=== PATIENT | female | born 1995 | race Two or more races ===

== ENCOUNTER 2024-01-09 12:16 | Outpatient (CLI) | payer OTHER | END 2024-01-09 12:17 | disposition home or self-care (01) | LOC: PRENATAL 12:16 | PROVIDERS: ATTEND Obstetrics & Gynecology Maternal & Fetal Medicine | DX: O35.9XX0 Maternal care for (suspected) fetal abnormality and damage, unspecified, not applicable or unspecified (principal); O35.3XX0 Maternal care for (suspected) damage to fetus from viral disease in mother, not applicable or unspecified; O44.02 Complete placenta previa NOS or without hemorrhage, second trimester; O16.2 Unspecified maternal hypertension, second trimester; Z3A.20 20 weeks gestation of pregnancy ==

== ENCOUNTER 2024-02-29 15:29 | Outpatient (CLI) | payer OTHER | END 2024-02-29 15:30 | disposition home or self-care (01) | LOC: PRENATAL 15:29 | PROVIDERS: ATTEND Obstetrics & Gynecology Maternal & Fetal Medicine | DX: O26.849 Uterine size-date discrepancy, unspecified trimester (principal); O10.019 Pre-existing essential hypertension complicating pregnancy, unspecified trimester; O44.00 Complete placenta previa NOS or without hemorrhage, unspecified trimester; Z3A.28 28 weeks gestation of pregnancy ==

== ENCOUNTER → 2024-03-22 11:33 | Outpatient (CLI) | payer OTHER | END | disposition home or self-care (01) | LOC: PRENATAL 11:33 | PROVIDERS: ATTEND Obstetrics & Gynecology Maternal & Fetal Medicine | DX: Z76.1 Encounter for health supervision and care of foundling (principal) ==

== ENCOUNTER 2024-04-11 15:22 | Outpatient (CLI) | payer OTHER | END 2024-04-11 15:23 | disposition home or self-care (01) | LOC: PRENATAL 15:22 | PROVIDERS: ATTEND Obstetrics & Gynecology Maternal & Fetal Medicine | DX: O26.849 Uterine size-date discrepancy, unspecified trimester (principal); O36.8199 Decreased fetal movements, unspecified trimester, other fetus; O10.019 Pre-existing essential hypertension complicating pregnancy, unspecified trimester; Z3A.34 34 weeks gestation of pregnancy ==

== ENCOUNTER 2024-05-14 11:00 | Outpatient (CLI) | payer OTHER ==
[2024-05-14 08:47] VITALS: BP 124/81
[2024-05-14] MEDS ORDERED: PRENATABS RX T1 EACH PO (11:49)
[2024-05-14] MEDS ORDERED: NIFE60TA3 PO (11:49)
[2024-05-14] MEDS ORDERED: ECOTRIN81 MG PO (11:50)
[2024-05-14] MEDS ORDERED: RINGERS SOLUTION,LACTATED 1,000 ML IV SCH (12:15)
[2024-05-14 12:30] VITALS: BP 100/62
[2024-05-14 13:19] LABS: HEMATOCRIT 35.1 % (36.0-45.00); HEMOGLOBIN 11.9 g/dL (12.0-15.00); MEAN CELL VOLUME 87.2 fL (80.00-100.00); MEAN CORPUSCULAR HEMOGLOBIN 29.5 pg (27.00-32.0); MEAN CORPUSCULAR HGB CONC 33.8 g/dl (32.0-36.0); PLATELET COUNT 229 K/uL (150-450); RED BLOOD COUNT 4.03 M/uL (4.00-6.00); RED CELL DISTRIBUTION WIDTH 15.2 % (11.5-14.5)
[2024-05-14 13:21] LABS: URINE APPEARANCE Clear; URINE BILIRRUBIN Negative (NEGATIVE); URINE BLOOD Negative; URINE COLOR Yellow; URINE GLUCOSE Negative (NEGATIVE); URINE KETONE Negative (NEGATIVE); URINE LEUKOCYTE Negative; URINE NITRATE Negative; URINE PROTEIN Negative (NEGATIVE); URINE UROBILINOGEN 0.2 E.U./dl
[2024-05-14 13:22] LABS: URINE BACTERIA 522.8 uL (0.0-1933); URINE EPITHELIAL CELLS 104.6 uL (0.0-38.8); URINE WBC 31.2 uL (0.0-23.2)
[2024-05-14 13:26] LABS: URINE CAST 0.15 uL (0.0-1.40); URINE RBC 1.6 uL (0.0-20.8)
[2024-05-14 17:05] VITALS: BP 122/83
== END 2024-05-14 16:35 | disposition home or self-care (01) ==
LOC: OBS/DEL 11:00
PROVIDERS: ATTEND Obstetrics & Gynecology
DX: O36.8130 Decreased fetal movements, third trimester, not applicable or unspecified (principal); O26.893 Other specified pregnancy related conditions, third trimester; Z3A.38 38 weeks gestation of pregnancy; Z91.013 Allergy to seafood; O26.843 Uterine size-date discrepancy, third trimester

== ENCOUNTER 2024-05-17 15:15 | Inpatient (IN) | payer OTHER ==
[~2024-05-17] VITALS: Ht 160 cm; Wt 102.1 kg
[~2024-05-17 15:15] MED LIST: ECOTRIN81 MG PO; NIFE60TA3 PO; PRENATABS RX T1 EACH PO
[2024-05-21] MEDS ORDERED: RINGERS SOLUTION,LACTATED 1,000 ML IV SCH (05:30)
[2024-05-21] MEDS ORDERED: AMPICILLIN SODIUM 2,000 MG VIAL IV ONE (05:30)
[2024-05-21 05:45] VITALS: BP 137/96
[2024-05-21 06:42] LABS: HEMOGLOBIN 11.7 g/dL (12.0-15.00); MEAN CORPUSCULAR HEMOGLOBIN 29.7 pg (27.00-32.0); MEAN CORPUSCULAR HGB CONC 34.5 g/dl (32.0-36.0); PLATELET COUNT 236 K/uL (150-450); RED BLOOD COUNT 3.95 M/uL (4.00-6.00); RED CELL DISTRIBUTION WIDTH 14.8 % (11.5-14.5)
[2024-05-21 06:47] LABS: URINE APPEARANCE Cloudy; URINE BILIRRUBIN Negative (NEGATIVE); URINE BLOOD Negative; URINE COLOR Yellow; URINE GLUCOSE Negative (NEGATIVE); URINE KETONE Negative (NEGATIVE); URINE LEUKOCYTE Trace; URINE NITRATE Negative; URINE PROTEIN Negative (NEGATIVE); URINE UROBILINOGEN 0.2 E.U./dl
[2024-05-21 06:49] LABS: URINE BACTERIA 7123.7 uL (0.0-1933); URINE EPITHELIAL CELLS 61.5 uL (0.0-38.8); URINE RBC 19.2 uL (0.0-20.8); URINE WBC 95.3 uL (0.0-23.2)
[2024-05-21 07:18] LABS: INR < 0.93; PARTIAL THROMBOPLASTIN TIME 28.3 SECONDS (22.0-34.0); PROTHROMBIN TIME 10.1 SECONDS (9.0-11.5)
[2024-05-21] MEDS ORDERED: MISOPROSTOL 25 MCG/4 ML GEL.W.APPL VAG STA (07:24)
[2024-05-21 07:44] VITALS: BP 121/76
[2024-05-21 07:47] LABS: ALBUMIN 2.7 gm/dL (3.4-5.0); BILIRUBIN TOTAL 0.19 mg/dL (0.3-1.2); CALCIUM 9.4 mg/dL (8.5-10.1); CREATININE SERUM 0.59 mg/dL (0.55-1.02); GFR 119.68; GLOBULINA 3.8 G/DL (2.4-3.5); POTASSIUM 4.25 mEq/L (3.5-5.1); TOTAL PROTEIN 6.5 gm/dL (6.4-8.2)
[2024-05-21] MEDS ORDERED: AMPICILLIN SODIUM 1,000 MG VIAL IV SCH (09:00)
[2024-05-21 11:54] VITALS: BP 131/80
[2024-05-21] MEDS ORDERED: MISOPROSTOL 25 MCG/4 ML GEL.W.APPL VAG ONE (14:45)
[2024-05-21 16:18] VITALS: BP 118/68
[2024-05-21 19:30] VITALS: BP 133/81
[2024-05-21 23:26] VITALS: BP 120/74
[2024-05-22] VITALS (8 sets, daily range): BP systolic 125–148; BP diastolic 72–87
[2024-05-22] MEDS ORDERED: MORPHINE SULFATE 4 MG/ML VIAL IV ONE (00:15)
[2024-05-22] MEDS ORDERED: MORPHINE SULFATE 4 MG/ML CARTRIDGE IV ONE (05:30)
[2024-05-22] MEDS ORDERED: MORPHINE SULFATE 2 MG/ML CARTRIDGE IV ONE (10:45)
[2024-05-22] MEDS ORDERED: OXYTOCIN 500 ML IV SCH (13:15)
[2024-05-22] MEDS ORDERED: OXYTOCIN 10 UNITS/ML VIAL IM STA (15:30)
[2024-05-22] MEDS ORDERED: IBUprofen 800 MG TABLET PO PRN (15:30)
[2024-05-22] MEDS ORDERED: OXYTOCIN 1,000 ML IV SCH (15:30)
[2024-05-22] MEDS ORDERED: CHLORHEXIDINE GLUCONATE 120 ML BOTTLE TOP SCH (15:30)
[2024-05-22] MEDS ORDERED: ERYTHROMYCIN BASE OPHT 1GM EACH TUBE OP ONE (15:45)
[2024-05-22] MEDS ORDERED: LIDOCAINE HCL 1% 10ML VIAL PERCUT ONE (15:45)
[2024-05-22 19:47] LABS: HEMATOCRIT 31.9 % (36.0-45.00); HEMOGLOBIN 10.6 g/dL (12.0-15.00); MEAN CELL VOLUME 87.8 fL (80.00-100.00); MEAN CORPUSCULAR HEMOGLOBIN 29.3 pg (27.00-32.0); MEAN CORPUSCULAR HGB CONC 33.4 g/dl (32.0-36.0); PLATELET COUNT 214 K/uL (150-450); RED BLOOD COUNT 3.63 M/uL (4.00-6.00); RED CELL DISTRIBUTION WIDTH 14.8 % (11.5-14.5)
[2024-05-23 01:29] VITALS: BP 130/84
[2024-05-23 06:03] VITALS: BP 127/81
[2024-05-23 08:00] VITALS: BP 130/80
[2024-05-23 16:00] VITALS: BP 131/80
[2024-05-24 03:06] VITALS: BP 110/73
[2024-05-24 09:20] VITALS: BP 130/89
== END 2024-05-24 17:32 | disposition home or self-care (01) | DRG 807 ==
LOC: LDR 05-21 05:20 → OB/GYN 05-22 14:31
PROVIDERS: ADMIT Obstetrics & Gynecology; ATTEND Obstetrics & Gynecology
PROC: 3E0P7VZ Introduction of Hormone into Female Reproductive, Via Natural or Artificial Opening (ICD-10-PCS; 2024-05-21)
PROC: 4A1HXCZ Monitoring of Products of Conception, Cardiac Rate, External Approach (ICD-10-PCS; 2024-05-21)
PROC: 10E0XZZ Delivery of Products of Conception, External Approach (ICD-10-PCS; principal; 2024-05-22)
PROC: 0KQM0ZZ Repair Perineum Muscle, Open Approach (ICD-10-PCS; 2024-05-22)
PROC: 3E033VJ Introduction of Other Hormone into Peripheral Vein, Percutaneous Approach (ICD-10-PCS; 2024-05-22)
DX: O70.1 Second degree perineal laceration during delivery (principal); Z37.0 Single live birth; Z3A.40 40 weeks gestation of pregnancy; Z20.822 Contact with and (suspected) exposure to COVID-19